=== PATIENT | female | born 1990 | race Caucasian/White ===

== ENCOUNTER 2019-08-30 14:05 | Observation (INO) | payer OTHER ==
[~2019-08-30] VITALS: Ht 160 cm; Wt 73.0 kg
[2019-08-30 15:30] VITALS: BP 122/68
[2019-08-31] MEDS ORDERED: PNV1TABL54 PO (19:30)
[2019-08-31] MEDS ORDERED: AZIT250T9 PO (19:32)
== END 2019-08-30 15:45 | disposition home or self-care (01) ==
LOC: 4S 14:05
PROVIDERS: ADMIT Obstetrics & Gynecology; ATTEND Obstetrics & Gynecology
DX: O62.9 Abnormality of forces of labor, unspecified (principal); O26.853 Spotting complicating pregnancy, third trimester; Z3A.38 38 weeks gestation of pregnancy
CPT/HCPCS: 81002; G0378

== ENCOUNTER 2019-08-31 18:02 | Inpatient (IN) | payer OTHER ==
[2019-08-31] MEDS ORDERED: RINGERS SOLUTION,LACTATED 1,000 ML IV PRN (18:25)
[2019-08-31] MEDS ORDERED: OXYTOCIN 30 UNITS/LACT RINGERS 500 ML IV ONE (18:25)
[2019-08-31] MEDS ORDERED: LIDOCAINE/PF 1% 30 ML VIAL INJ PRN (18:30)
[2019-08-31] MEDS ORDERED: METOCLOPRAMIDE HCL 5 MG/ML 2 ML VIAL IVP PRN (18:30)
[2019-08-31] MEDS ORDERED: FentaNYL CITRATE-PF 100 MCG/2 ML VIAL IVP PRN (18:30)
[2019-08-31] MEDS ORDERED: TERBUTALINE SULFATE 1 MG/ML VIAL SQ PRN (18:30)
[2019-08-31] MEDS ORDERED: METHYLERGONOVINE MALEATE 0.2 MG/ML VIAL IM PRN (18:30)
[2019-08-31] MEDS ORDERED: CITRIC ACID/SODIUM CITRATE 30 ML SOLUTION UDCUP PO PRN (18:30)
[2019-08-31 18:36] VITALS: BP 123/81
[2019-08-31] MEDS: RINGERS SOLUTION,LACTATED 1,000 ML IV SCH ×2 (19:07→23:04)
[2019-08-31 19:24] LABS: BASOPHILS % (AUTO) 0.5 % (0.0-2.0); EOSINOPHILS % (AUTO) 0.1 % (1.0-6.0); HEMATOCRIT 33.5 % (36-46); LYMPHOCYTES # (AUTO) 1.3 K/uL (1.0-4.8); LYMPHOCYTES % (AUTO) 8.3 % (22.0-44.0); MEAN CORPUSCULAR HEMOGLOBIN 26.7 pg (26.0-34.0); MEAN CORPUSCULAR HGB CONC 32.9 G/dL (31.0-37.0); MEAN CORPUSCULAR VOLUME 81 fL (80-100); MONOCYTES % (AUTO) 6.5 % (2.0-9.0); NEUTROPHILS # (AUTO) 13.6 K/uL (1.8-7.7); NEUTROPHILS % (AUTO) 84.6 % (40.0-70.0); PLATELET COUNT (AUTO) 141 K/uL (150-450); RED BLOOD CELL COUNT(AUTO) 4.11 MIL/uL (4.00-5.20); RED CELL DISTRIBUTION WIDTH 14.4 % (11.5-14.5)
[2019-08-31] MEDS ORDERED: INFLUENZA VIRUS VACCINE QVS 2019-20 (3YR+)/PF 60 MCG/0.5 ML SYRINGE IM ONE (19:30)
[2019-08-31] MEDS ORDERED: PNV1TABL54 PO (19:30)
[2019-08-31] MEDS ORDERED: AZIT250T9 PO (19:32)
[2019-08-31] MEDS ORDERED: ROPIVACAINE HCL/PF 0.2% 100 ML ED PRN (19:56)
[2019-08-31] MEDS ORDERED: OXYGEN THERAPY IH SCH (20:00)
[2019-08-31] MEDS ORDERED: NALBUPHINE HCL 10 MG/ML VIAL IVP PRN (20:00)
[2019-08-31] MEDS ORDERED: DiphenhydrAMINE HCL 50 MG/ML VIAL IVP PRN (20:00)
[2019-08-31] MEDS ORDERED: ONDANSETRON HCL 4 MG/2 ML VIAL IVP PRN (20:00)
[2019-08-31] MEDS: ACYCLOVIR 200 MG CAPSULE PO SCH (21:20)
[2019-08-31] MEDS ORDERED: OXYTOCIN 30 UNITS/LACT RINGERS 500 ML IV PRN (21:40)
[2019-08-31] MEDS ORDERED: MINERAL OIL 30 ML UDCUP VG ONE (22:00)
[2019-09-01] MEDS ORDERED: LANOLIN 7 GM OINTMENT TP PRN (02:45)
[2019-09-01] MEDS ORDERED: BENZOCAINE 20%/MENTHOL 56 GM SPRAY CANISTER TP PRN (02:45)
[2019-09-01] MEDS ORDERED: GLYCERIN/WITCH HAZEL LEAF 40 PADS JAR TP PRN (02:45)
[2019-09-01] MEDS ORDERED: LIDOCAINE/PF 1% 30 ML VIAL INJ PRN (02:45)
[2019-09-01] MEDS ORDERED: OXYTOCIN 30 UNITS/LACT RINGERS 500 ML IV ONE (02:45)
[2019-09-01] MEDS ORDERED: OxyCODONE HCL/ACETAMINOPHEN 5-325 MG TABLET PO PRN (02:45)
[2019-09-01] MEDS: IBUPROFEN 800 MG TABLET PO PRN ×3 (07:50→20:42)
[2019-09-01] MEDS: OxyCODONE HCL/ACETAMINOPHEN 5-325 MG TABLET PO PRN ×2 (07:50→14:40)
[2019-09-01] MEDS: ACYCLOVIR 200 MG CAPSULE PO SCH ×3 (09:39→20:42)
[2019-09-01] MEDS: MAGNESIUM HYDROXIDE SUSPENSION 30 ML UDCUP PO PRN ×2 (09:40→20:41)
[2019-09-02 06:59] LABS: BASOPHILS % (AUTO) 0.2 % (0.0-2.0); EOSINOPHILS % (AUTO) 1.2 % (1.0-6.0); HEMATOCRIT 25.7 % (36-46); HEMOGLOBIN 8.5 g/dL (12.0-16.0); LYMPHOCYTES # (AUTO) 2.6 K/uL (1.0-4.8); LYMPHOCYTES % (AUTO) 14.7 % (22.0-44.0); MEAN CORPUSCULAR HEMOGLOBIN 27.1 pg (26.0-34.0); MEAN CORPUSCULAR VOLUME 82 fL (80-100); MONOCYTES # (AUTO) 1.3 K/uL (0.1-1.0); MONOCYTES % (AUTO) 7.4 % (2.0-9.0); NEUTROPHILS # (AUTO) 13.6 K/uL (1.8-7.7); NEUTROPHILS % (AUTO) 76.5 % (40.0-70.0); PLATELET COUNT (AUTO)-OB 127 K/uL (150-450); RED BLOOD CELL COUNT(AUTO) 3.13 MIL/uL (4.00-5.20); RED CELL DISTRIBUTION WIDTH 14.6 % (11.5-14.5)
[2019-09-02] MEDS: MAGNESIUM HYDROXIDE SUSPENSION 30 ML UDCUP PO PRN (09:13)
[2019-09-02] MEDS: ACYCLOVIR 200 MG CAPSULE PO SCH (09:15)
[2019-09-02] MEDS: IBUPROFEN 800 MG TABLET PO PRN (09:17)
[2019-09-02] MEDS ORDERED: IBUP-2071 PO (09:50)
[2019-09-02] MEDS ORDERED: FERR-89 PO (09:51)
[2019-09-02] MEDS ORDERED: DOCU-275 PO (09:53)
== END 2019-09-02 13:05 | disposition home or self-care (01) | DRG 807 ==
LOC: 4S 18:02 → OBSVTOIN 18:02
PROVIDERS: ADMIT Obstetrics & Gynecology; ATTEND Obstetrics & Gynecology
PROC: 10E0XZZ Delivery of Products of Conception, External Approach (ICD-10-PCS; principal; 2019-09-01)
PROC: 0KQM0ZZ Repair Perineum Muscle, Open Approach (ICD-10-PCS; 2019-09-01)
PROC: 3E0R3BZ Introduction of Anesthetic Agent into Spinal Canal, Percutaneous Approach (ICD-10-PCS; 2019-09-01)
PROC: 00HU33Z Insertion of Infusion Device into Spinal Canal, Percutaneous Approach (ICD-10-PCS; 2019-09-01)
DX: O70.1 Second degree perineal laceration during delivery (principal); Z37.0 Single live birth; O43.93 Unspecified placental disorder, third trimester; Z3A.38 38 weeks gestation of pregnancy
CPT/HCPCS: 86850; 86900; 86901; J2590; J2795; J3010; J7120